=== PATIENT | female | born 1995 | race Caucasian/White ===

== ENCOUNTER 2017-09-09 20:00 | Emergency (ER) | payer OTHER ==
[2017-09-09] MEDS ORDERED: IV NORMAL SALINE 1000ML BAG 1,000 ML IV (20:17)
[2017-09-09] MEDS ORDERED: MORPHINE SULFATE 2 MG/ML DISP.SYRIN. IV/SQ (20:30)
[2017-09-09 20:58] LABS: BILIRUBIN,URINE NEGATIVE (NEG); CLARITY,URINE CLOUDY; COLOR,URINE AMBER; GLUCOSE,URINE NEGATIVE (NEG); NITRITE,URINE NEGATIVE (NEG); PH,URINE 5.5; PROTEIN,URINE NEGATIVE (NEG-TRACE)
[2017-09-09 21:04] LABS: AMPHETAMINE/METHAMPHETAMINE NEG (NEG); BARBITURATES NEG (NEG); BENZODIAZEPINES NEG (NEG); CANNABINOIDS NEG (NEG); COCAINE NEG (NEG); ETHANOL, URINE NEG (NEG); METHADONE NEG (NEG); OPIATES NEG (NEG); PHENCYCLIDINE NEG (NEG)
[2017-09-09 21:08] LABS: NEG OBC UR NEG; POS OBC UR POS; U PREG PATIENT NEGATIVE (NEG)
[2017-09-09 21:09] LABS: BACTERIA,URINE MANY /HPF (0-FEW); RBC,URINE OCC /HPF (0-2)
[2017-09-09 21:10] LABS: SQUAMOUS EPITHELIAL CELL,UR MANY /LPF
[2017-09-09] MEDS ORDERED: ONDANSETRON PF 4 MG/2 ML VIAL. IV (21:30)
[2017-09-09] MEDS: cefTRIAXone IM 250 MG VIAL IM (21:45)
[2017-09-09] MEDS: AZITHROMYCIN 250 MG TABLET. PO (21:45)
== END 2017-09-10 00:59 | disposition home or self-care (01) ==
LOC: ER 09-10 00:59
DX: A64 Unspecified sexually transmitted disease (principal); N39.0 Urinary tract infection, site not specified
CPT/HCPCS: 80307; 81001; 81025; 87086; 96372; 99284-25; J0696; Q0144

== ENCOUNTER 2018-08-22 20:53 | Emergency (ER) | payer OTHER ==
[~2018-08-22] VITALS: Ht 165.1 cm; Wt 77.1 kg
[2018-08-22 21:18] VITALS: BP 110/68
== END 2018-08-22 22:03 | disposition left against medical advice (07) ==
LOC: ER 20:53
DX: M25.532 Pain in left wrist (principal); Z53.21 Procedure and treatment not carried out due to patient leaving prior to being seen by health care provider

== ENCOUNTER → 2019-03-14 | Outpatient (CLI) | payer OTHER ==
[2019-03-14 11:56] LABS: BASO # 0.1 x10^3/uL (0.0-0.2); BASO % 1 % (0-3); EOS # 0.3 x10^3/uL (0.0-0.7); EOS % 4 % (0-3); HEMATOCRIT 41.5 % (36.0-47.0); HEMOGLOBIN 14.3 g/dL (12.0-15.5); LYMPH # 1.9 x10^3/uL (1.0-4.8); LYMPH % 23 % (24-48); MEAN CORPUSCULAR HEMOGLOBIN 28 pg (25-35); MEAN CORPUSCULAR HGB CONC 34 g/dL (31-37); MEAN CORPUSCULAR VOLUME 81 fL (79-100); MONO # 0.5 x10^3/uL (0.0-1.1); MONO % 6 % (0-9); NEUT # 5.3 x10^3/uL (1.8-7.7); NEUT % 66 % (31-73); PLATELET COUNT 261 x10^3/uL (140-400); RED BLOOD COUNT 5.11 x10^6/uL (3.50-5.40); RED CELL DISTRIBUTION WIDTH 13.1 % (11.5-14.5)
== END | disposition home or self-care (01) ==
LOC: LAB 11:19
PROVIDERS: ATTEND Obstetrics & Gynecology
DX: Z32.01 Encounter for pregnancy test, result positive (principal)
CPT/HCPCS: 36415; 81220; 85025; 86592; 86703; 86762; 86850; 86900; 86901; 87340

== ENCOUNTER → 2019-06-13 | Outpatient (CLI) | payer OTHER ==
--- NOTE | 2019-06-13 13:09 | RAD ---
EXAM: OBSTETRIC ULTRASOUND. HISTORY: Unknown dates. COMPARISON: None. FINDINGS: Sonographic evaluation of the uterus, fetus and maternal pelvis was performed. Visualization was limited by habitus. There is a single fetus in vertex presentation. heart rate is 141 bpm. Estimated gestational age based on measurements is 20 weeks 1 day. Head circumference, biparietal diameter, abdominal circumference and femur length are commensurate. Estimated weight is 322 g. The placenta is anterior. There is no evidence of placenta previa. Amniotic fluid volume appears normal with amniotic fluid index 11.1 cm. The cervix is closed and measures 4.0 cm. The heart is four-chamber though this was difficult to demonstrate on several images. The left and right ventricular outflow tracts are visualized on real-time scanning. The cord insertion appears normal. Images of the kidneys reveal no hydronephrosis. extremities appear normal. Images of the spine reveal no clear defects. The stomach and bladder are visualized. The posterior fossa appears normal. There is no hydrocephalus. Nose/lip morphology appears normal. The profile was difficult to demonstrate given positioning but no abnormality is seen. The cord is three-vessel. The maternal adnexa are obscured by positioning currently. IMPRESSION: 1. Single fetus in vertex presentation. heart rate 141 bpm. Estimated gestational age based on measurements 20 weeks 1 day. Electronically signed by: Stormy Falk MD (06/13/2019 1:06 PM) [facility]
== END | disposition home or self-care (01) ==
LOC: US 11:08
PROVIDERS: ATTEND Obstetrics & Gynecology
DX: O26.842 Uterine size-date discrepancy, second trimester (principal); Z3A.20 20 weeks gestation of pregnancy
CPT/HCPCS: 76805